=== PATIENT | female | born 1965 | race Two or more races ===

== ENCOUNTER 2016-09-04 04:07 | Emergency (ER) | payer OTHER, MEDICAID ==
[~2016-09-04] VITALS: Ht 165.1 cm; Wt 77.1 kg
[~2016-09-04 04:07] MED LIST: ALPR0.5T PO; BACL10TA PO; DULO30CA2 PO; GABA300C8 PO; MORP15TA PO; OMEP20TA85 PO; ONDA8TAB9 SL; TRAM-297 PO; ZOLP10TA6 PO
[2016-09-04 04:59] VITALS: BP 132/80
[2016-09-04] MEDS ORDERED: ONDANSETRON HCL 4 MG/2 ML VIAL IM ONE (05:15)
[2016-09-04] MEDS ORDERED: HYDROmorphone HCL 2 MG/ML VL IV ONE (05:15)
[2016-09-04] MEDS: HYDROmorphone HCL 2 MG/ML VL IM ONE (05:21)
[2016-09-04] MEDS: ONDANSETRON HCL 4 MG/2 ML VIAL IM ONE (05:21)
== END 2016-09-04 06:08 | disposition home or self-care (01) ==
LOC: ER 04:09
DX: G89.4 Chronic pain syndrome (principal); M54.5 Low back pain; M54.2 Cervicalgia; J45.909 Unspecified asthma, uncomplicated; E78.5 Hyperlipidemia, unspecified; I10 Essential (primary) hypertension; Z88.0 Allergy status to penicillin; Z88.6 Allergy status to analgesic agent; Z88.8 Allergy status to other drugs, medicaments and biological substances; Z90.710 Acquired absence of both cervix and uterus
CPT/HCPCS: 93005; 96372; 99284; J1170; J2405

== ENCOUNTER 2018-04-11 18:50 | Emergency (ER) | payer OTHER, MEDICAID ==
[~2018-04-11] VITALS: Ht 165.1 cm; Wt 75.7 kg
[~2018-04-11 18:50] MED LIST changes: +GABA300C10 PO; -GABA300C8 PO; +ONDA-133 SL; -ONDA8TAB9 SL
[2018-04-11 19:01] VITALS: BP 129/78
[2018-04-11] MEDS ORDERED: LIDOCAINE 1% HCL (LOCAL ANESTH.) INJ 20ML MDV IJ ONE (20:30)
[2018-04-11] MEDS ORDERED: TETANUS-DIPTH-ACEL PERTUSSIS 0.5ML SYRG IM ONE (20:30)
[2018-04-11] MEDS ORDERED: LIDOCAINE 1%HCL (LOCAL ANESTH) 10 ML MDV ONE (20:51)
[2018-04-11] MEDS ORDERED: ONDANSETRON ODT 4 MG TAB PO ONE (21:00)
== END 2018-04-11 21:29 | disposition home or self-care (01) ==
LOC: ER 18:50
DX: S61.012A Laceration without foreign body of left thumb without damage to nail, initial encounter (principal); I10 Essential (primary) hypertension; E78.5 Hyperlipidemia, unspecified; J45.909 Unspecified asthma, uncomplicated; Z88.0 Allergy status to penicillin; Z88.8 Allergy status to other drugs, medicaments and biological substances; W26.0XXA Contact with knife, initial encounter; Y93.89 Activity, other specified; Y99.8 Other external cause status; Y92.89 Other specified places as the place of occurrence of the external cause
CPT/HCPCS: 12001; 73130; 90471; 90715; 99284; J2001; Q0162